=== PATIENT | male | born 1995 | race African-American/Black ===

== ENCOUNTER 2018-06-30 12:49 | Emergency (ER) | payer OTHER ==
[~2018-06-30] VITALS: Ht 170.2 cm; Wt 72.6 kg
[2018-06-30 14:06] LABS: PLATELET COUNT 245 K/uL (142-355)
[2018-06-30 14:11] LABS: POTASSIUM 3.5 mmol/L (3.6-5.2)
[2018-06-30 17:26] VITALS: BP 155/62; TEMP 99.4
== END 2018-06-30 17:26 | disposition home or self-care (01) ==
LOC: ED 12:49
PROVIDERS: Family Medicine
DX: K58.9 Irritable bowel syndrome, unspecified (principal); R11.2 Nausea with vomiting, unspecified; R10.30 Lower abdominal pain, unspecified
CPT/HCPCS: 80053; 81000; 85027; 96360; 96375; 99284; J1885; J2405

== ENCOUNTER 2020-09-24 06:36 | Emergency (ER) | payer OTHER | END 2020-09-24 06:46 | disposition home or self-care (01) | LOC: ED 06:36 | DX: R11.0 Nausea (principal); R52 Pain, unspecified | CPT/HCPCS: 99281 ==

== ENCOUNTER 2022-03-18 07:46 | Emergency (ER) | payer OTHER ==
[~2022-03-18] VITALS: Ht 170.2 cm; Wt 83.9 kg
[2022-03-18 07:52] VITALS: TEMP 98.8
[2022-03-18 08:33] LABS: PLATELET COUNT 269 K/uL (142-355)
[2022-03-18 08:40] LABS: POTASSIUM 3.8 mmol/L (3.6-5.2)
[2022-03-18 10:07] VITALS: BP 103/65
== END 2022-03-18 10:15 | disposition home or self-care (01) ==
LOC: ED 07:46
PROVIDERS: Family Medicine
DX: K52.89 Other specified noninfective gastroenteritis and colitis (principal); R73.9 Hyperglycemia, unspecified
CPT/HCPCS: 36415; 80053; 81002; 82150; 83690; 85027; 96361; 96374; 96375; 99284; J1885; J2405; J2550

== ENCOUNTER 2022-05-23 09:35 | Emergency (ER) | payer OTHER ==
[~2022-05-23] VITALS: Ht 165.1 cm; Wt 85.7 kg
[2022-05-23 09:36] VITALS: BP 138/77; TEMP 97.7
== END 2022-05-23 10:35 | disposition home or self-care (01) ==
LOC: ED 09:35
DX: J02.0 Streptococcal pharyngitis (principal); Z20.822 Contact with and (suspected) exposure to COVID-19
CPT/HCPCS: 87502; 87635; 87651; 99283; U0003

== ENCOUNTER 2022-09-18 06:48 | Emergency (ER) | payer OTHER ==
[~2022-09-18] VITALS: Ht 165.1 cm; Wt 85.7 kg
[2022-09-18 07:42] VITALS: BP 134/84; TEMP 98.6
== END 2022-09-18 07:42 | disposition home or self-care (01) ==
LOC: ED 06:48
DX: J02.0 Streptococcal pharyngitis (principal); J06.9 Acute upper respiratory infection, unspecified
CPT/HCPCS: 87635; 87651; 99283; U0003